=== PATIENT | male | born 1965 | race Caucasian/White ===

== ENCOUNTER → 2018-12-14 | Outpatient (REF) ==
--- NOTE | 2018-12-14 10:59 | RADIOLOGY IMAGING REPORT ---
FACILITY: [facility] PATIENT NAME: Evan Jaramillo : 1965 MR: [id number] V: [id number] EXAM DATE: ORDERING PHYSICIAN: TOMY CHAN TECHNOLOGIST: Location: [facility] [place] Patient: Evan Jaramillo : 1965 Visit/Account:[id number] Date of Sevice: 12/14/2018 LIVER HISTORY: HCV positive, elevated liver enzymes COMPARISON: None. FINDINGS: Gallbladder: Unremarkable; no stones or sludge. Liver: Liver is normal in size although there is slightly coarse echogenicity which can be seen with infiltrative process although discrete mass is not demonstrated. Common duct: Normal, 3.6 mm diameter. Pancreas: Partially obscured by bowel, visualized aspects unremarkable. Right kidney: There is a slightly lobular contour to the right kidney although discrete mass is not s een. No evidence of hydronephrosis. The right kidney measures 12.7 cm in length Upper abdominal aorta and IVC: Patent. Ascites: None visualized. IMPRESSION: Liver is normal in size although there is a slight coarse echogenicity which can be seen with infiltr ative processes. Discrete mass is not demonstrated Report Dictated By: Gilda Morgan MD at 12/14/2018 10:48 AM Report E-Signed By: Gilda Morgan MD at 12/14/2018 10:54 AM WSN:CHAR
== END ==
LOC: US 09:23
PROVIDERS: ATTEND Nurse Practitioner
DX: B18.2 Chronic viral hepatitis C (principal); R74.8 Abnormal levels of other serum enzymes
CPT/HCPCS: 76705

== ENCOUNTER → 2019-04-06 | Outpatient (CLI) | payer BC ==
[~2019-04-06] MED LIST: AMLO-127 PO; CARV25TA78 PO; CHOL100061 PO; CITA-145 PO; LISI-353 PO; SOFO1TAB PO
[2019-04-06 17:48] LABS: PLATELET COUNT, AUTOMATED 181 K/uL (150-450)
[2019-04-06 17:57] LABS: LDL CHOLESTEROL 84 mg/dl
== END ==
LOC: LAB 15:56
PROVIDERS: ATTEND Internal Medicine
DX: F41.9 Anxiety disorder, unspecified (principal); B19.20 Unspecified viral hepatitis C without hepatic coma; I10 Essential (primary) hypertension
CPT/HCPCS: 36415; 82040; 82247; 82310; 82374; 82435; 82465; 82565; 82728; 82947; 83540; 83550; 83718; 84075; 84132; 84153; 84155; 84295; 84443; 84450; 84460; 84478; 84520; 85025

== ENCOUNTER 2019-04-17 08:17 | Emergency (ER) | payer BC ==
--- NOTE | 2019-04-17 08:26 | ER Report ---
History and Physical Time Seen By MD: 08:26 Hx. of Stated Complaint: LEFT EAR PAIN FOR FOUR DAYS THAT HAS PROGRESSED TO LEFT JAW AND NECK PAIN. STATES LOW GRADE FEVERS. DIZZY AND HARD OF HEARING HPI/ROS CHIEF COMPLAINT: Left ear pain, sinus pressure. HISTORY OF PRESENT ILLNESS: Patient is a 54-year-old male here with complaints of left ear pain, sinus pressure, mild pain with opening mouth. Patient complains of decreased appetite, pressure around the high,, changes in hearing in the left ear. Patient is well-appearing, denies difficulty moving the left e ye. Patient is hemodynamically stable at time of evaluation, able to open his mouth without signs of trismus. He has been taking [id number] analgesics without relief. REVIEW OF SYSTEMS: Constitutional: No fever, no chills. Eyes: No discharge, + pressure surrounding left eye. ENT: No sore throat. + Mild pain on the left side when opening mouth, left-sided sinus pressure, pain on examination of the left ear without marked erythema or bulging. Cardiovascular: No chest pain, no palpitations. Respiratory: No cough, no shortness of breath. Gastrointestinal: No abdominal pain, no vomiting. Genitourinary: No hematuria. Musculoskeletal: No back pain. Skin: No rashes. Neurological: + Mild headache. Allergies: Coded Allergies: No Known Drug Allergies (Unverified , 04/17/19) Home Meds Active Scripts Amoxicillin/Pot Clav 875-125 Mg Tab (AUGMENTIN 875-125 TABLET) 1 Each Tablet, 1 TAB PO Q12H for 7 Days, #14 TAB Prov:ADILIA GARCIA DO 04/17/19 Amlodipine Besylate (AMLODIPINE BESYLATE) 10 Mg Tablet, 1 TAB PO QDAY, #30 TAB 3 Refills Prov:GURU DENIS MD 04/06/19 Carvedilol (CARVEDILOL) 25 Mg Tablet, 25 MG PO BID, #60 TAB 3 Refills Prov:GURU DENIS MD 04/06/19 Lisinopril/Hydrochlorothiazide (LISINOPRIL-HCTZ 20-12.5 MG TAB) 1 Each Tablet, 1 EACH PO BID, #60 TAB 3 Refills Prov:GURU DENIS MD 04/06/19 Citalopram Hydrobromide (CITALOPRAM HBR) 20 Mg Tablet, 20 MG PO QDAY, #30 TAB 6 Refills Prov:GURU DENIS MD 04/06/19 Reported Medications Cholecalciferol (Vitamin D3) (VITAMIN D3) 1,000 Unit Tab.chew, 1000 UNIT PO QDAY, TAB.CHEW 04/06/19 Discontinued Scripts Sofosbuvir/Velpatasvir (Epclusa 400 mg-100 mg Tablet) 400 Mg-100 Mg Tablet, 1 TAB PO QDAY, #90 TAB 1 tablet by mouth daily for a total of 12 weeks Prov:GURU DENIS MD 04/07/19 Smoking Status: Current: Every Day Smoker Exposure to Second Hand Smoke?: Yes Hx Alcohol Use: Yes (SOMETIMES) Constitutional Vital Sign - Last 24 Hours 04/17/19 08:21 Temp 97.4 Pulse 56 Resp 18 B/P (MAP) 165/119 Pulse Ox 93 O2 Delivery Room Air Physical Exam General Appearance: The patient is alert, has no immediate need for airway protection and no signs of toxicity. Uncomfortable appearing Eyes: Pupils equal and round no pallor or injection, no erythema around the left eye, no proptosis ENT, Mouth: Mucous membranes are moist, + anterior left-sided cervical adenopathy tender on palpation, tender on examination of the left ear canal with no signs of erythema, drainage, exudates or air fluid levels, tenderness on percussion of left maxillary and frontal sinuses Respiratory: There are no retractions, lungs are clear to auscultation. Cardiovascular: Regular rate and rhythm. Neurological: No focal neurological findings on examination, cranial nerves intact Skin: Warm and dry, no rashes. Musculoskeletal: Neck is supple non tender. Extremities are nontender, nonswollen and have full range of motion. DIFFERENTIAL DIAGNOSIS: After history and physical exam differential diagnosis was considered for sinusitis, otitis externa, otitis media, periorbital cellulitis, viral syndrome, dental abscess Medical Decision Making ED Course/Re-evaluation ED Course Patient is a 54-year-old male here with complaints of left otalgia, left-sided maxillary and frontal sinus pressure and tenderness on percussion. Due to the patient's current symptoms, CT imaging not warranted at this time. Return precautions were provided to the patient and he voiced understanding. There was no signs of erythema surrounding the left eye, proptosis or pain with extraocular muscle movement. His the patient's consolation of symptoms, he will be treated for sinusitis with cross coverage for otitis media. Patient was advised to continue vash-lfw-zlcouln analgesics, antipyretics as needed. Aggressive fluid hydration recommended. Close PCP follow-up recommended. Decision to Disposition Date: April 17, 2019 Decision to Disposition Time: 08:40 Depart Departure Latest Vital Signs Vital Signs Date Time Temp Pulse Resp B/P (MAP) Pulse Ox O2 Delivery O2 Flow Rate FiO2 04/17/19 08:21 97.4 56 18 165/119 93 Room Air Impression: Primary Impression: Sinusitis Condition: Improved Disposition: HOME OR SELF-CARE Referrals: GURU DENIS MD (PCP) New Scripts Amoxicillin/Pot Clav 875-125 Mg Tab (AUGMENTIN 875-125 TABLET) 1 Each Tablet 1 TAB PO Q12H for 7 Days, #14 TAB Prov: ADILIA GARCIA DO 04/17/19 Patient Instructions: Sinusitis (ED) Additional Instructions: Please take Augmentin 1 tablet twice daily for 7 days for treatment of suspected sinus infection versus otitis media. Please drink plenty of water. Please take Tylenol or ibuprofen as needed for pain control. Please return immediately if you develop worsening pain, inability to open her mouth, difficulty swallowing, visual changes, inability to keep down food or fluids. Please follow-up with your primary care provider in the next 3-5 days for repeat evaluation. ADILIA GARCIA DO April 17, 2019 08:26
[2019-04-17 08:30] VITALS: BP 153/117
[2019-04-17] MEDS ORDERED: AMOX-559 PO (08:38)
[2019-04-20] MEDS ORDERED: SOFO1TAB PO (10:33)
== END 2019-04-17 08:44 | disposition home or self-care (01) ==
LOC: ER 08:30
DX: J32.0 Chronic maxillary sinusitis (principal)
CPT/HCPCS: 99281

== ENCOUNTER → 2019-06-19 | Outpatient (CLI) | payer BC ==
[~2019-06-19] MED LIST changes: +AMOX-559 PO; +CLON-329 PO; +DULO30CA35 PO; +DULO60CA56 PO
[2019-06-19 12:31] LABS: PLATELET COUNT, AUTOMATED 173 K/uL (150-450)
== END ==
LOC: LAB 11:40
PROVIDERS: ATTEND Internal Medicine
DX: F41.9 Anxiety disorder, unspecified (principal); I10 Essential (primary) hypertension; B19.20 Unspecified viral hepatitis C without hepatic coma; L40.9 Psoriasis, unspecified; R78.79 Finding of abnormal level of heavy metals in blood
CPT/HCPCS: 36415; 81256; 82040; 82247; 82310; 82374; 82435; 82565; 82728; 82947; 83540; 83550; 84075; 84132; 84155; 84295; 84443; 84450; 84460; 84520; 84550; 85025; 85651; 86038; 86140; 86200; 87522